=== PATIENT | male | born 1980 | race Caucasian/White ===

== ENCOUNTER 2021-07-14 11:30 | Emergency (ER) | payer OTHER ==
--- NOTE | 2021-07-14 12:50 | CR ---
INDICATION: Left hip injury. Fall. COMPARISON: None. TECHNIQUE: Pelvis single view, left hip 2 views. FINDINGS: No acute fracture. Alignment is within normal limits. Joint spaces are maintained. Soft tissues are unremarkable. IMPRESSION: No acute osseous abnormality. Dictated by Richard Hadley MD @ 07/14/2021 12:49:22 PM (Electronically Signed)
[2021-07-14] MEDS ORDERED: Ibuprofen 600 MG Tab PO ONE (15:00)
[2021-07-14] MEDS ORDERED: Acetaminophen/oxyCODONE 325-5 MG Tab PO ONE (15:00)
--- NOTE | 2021-07-14 15:03 | EDM.PDOC ---
ED HPI GENERAL MEDICAL PROBLEM - General Chief Complaint: Lower Extremity Injury/Pain Stated Complaint: BROKE HIP ON LFT SIDE Time Seen by Provider: 07/14/21 14:40 Source of Information: Reports: Patient History Limitations: Reports: No Limitations - History of Present Illness INITIAL COMMENTS - FREE TEXT/NARRATIVE: 41-year-old male fell off his truck this morning landing on his left side. He has pain in his hip. Has been ambulatory after the fall. Denies hitting his head. - Related Data Allergies Allergy/AdvReac Type Severity Reaction Status Date / Time No Known Allergies Allergy Verified 07/14/21 15:01 Home Meds: Home Meds Acetaminophen/oxyCODONE [Percocet 325-5 MG] 1 each PO Q6H PRN #18 tab 07/14/21 [Rx] Ibuprofen [Motrin] 600 mg PO Q6H PRN #20 tab 07/14/21 [Rx] Review of Systems - Review of Systems Review Of Systems: Comprehensive ROS is negative, except as noted in HPI. ED EXAM, GENERAL - Physical Exam Exam: See Below Exam Limited By: No Limitations General Appearance: Alert, WD/WN, No Apparent Distress Ears: Hearing Grossly Normal Head: Atraumatic, Normocephalic Neck: Normal Inspection Respiratory/Chest: No Respiratory Distress, Lungs Clear, Normal Breath Sounds, No Accessory Muscle Use Cardiovascular: Normal Peripheral Pulses, Regular Rate, Rhythm Back Exam: Normal Inspection Extremities: Normal Inspection Neurological: Alert, Normal Cognition Psychiatric: Normal Affect, Normal Mood Skin Exam: Warm, Dry, Intact, Normal Color Course - Orders/Labs/Meds Meds: Medications Discontinued Medications Generic Name Dose Route Start Last Admin Trade Name Kit PRN Reason Stop Dose Admin Ibuprofen 600 mg 07/14/21 15:00 Ibuprofen 600 Mg Tab PO 07/14/21 15:01 ONETIME ONE Oxycodone/Acetaminophen 1 tab 07/14/21 15:00 Acetaminophen/Oxycodone 325-5 Mg Tab PO 07/14/21 15:01 ONETIME ONE - Re-Assessments/Exams Free Text/Narrative Re-Assessment/Exam: 07/14/21 15:03 X-ray imaging is unremarkable. Will discharge patient with short course of analgesia. Will give orthopedic follow-up as necessary. Departure - Departure Time of Disposition: 15:03 Disposition: Home, Self-Care 01 Condition: Good Clinical Impression: Contusion, hip Qualifiers: Encounter type: initial encounter Laterality: left Qualified Code(s): S70.02XA - Contusion of left hip, initial encounter - Discharge Information Prescriptions: Ibuprofen [Motrin] 600 mg PO Q6H PRN #20 tab PRN Reason: Pain Acetaminophen/oxyCODONE [Percocet 325-5 MG] 1 each PO Q6H PRN #18 tab PRN Reason: Pain Instructions: Hip Pain Referrals: PCP,None [Primary Care Provider] - Additional Instructions: [facility] [address] [place] [address], [address] [place] [address] The following information is given to patients seen in the emergency department who are being discharged to home. This information is to outline your options for follow-up care. We provide all patients seen in our emergency department with a follow-up referral. The need for follow-up, as well as the timing and circumstances, are variable depending upon the specifics of your emergency department visit. If you don't have a primary care physician on staff, we will provide you with a referral. We always advise you to contact your personal physician following an emergency department visit to inform them of the circumstance of the visit and for follow-up with them and/or the need for any referrals to a consulting specialist. The emergency department will also refer you to a specialist when appropriate. This referral assures that you have the opportunity for follow-up care with a specialist. All of these measure are taken in an effort to provide you with optimal care, which includes your follow-up. Under all circumstances we always encourage you to contact your private physician who remains a resource for coordinating your care. When calling for follow-up care, please make the office aware that this follow-up is from your recent emergency room visit. If for any reason you are refused follow-up, please contact the [facility] at and asked to speak to the emergency department charge nurse. Please follow up with your primary care physician. If you do not have a primary care physician, see below: [facility] [address] [place] [id number] [facility] [address] [place] [address] [facility] [address] [address]
== END 2021-07-14 15:14 | disposition home or self-care (01) ==
LOC: MW.ED 11:30
DX: S70.02XA Contusion of left hip, initial encounter (principal); W17.89XA Other fall from one level to another, initial encounter
CPT/HCPCS: 73502; 99283; A9270